=== PATIENT | female | born 1985 | race Caucasian/White ===

== ENCOUNTER 2020-04-18 00:53 | Emergency (ER) | payer OTHER ==
[~2020-04-18] VITALS: Ht 172.7 cm; Wt 55.3 kg
--- NOTE | 2020-04-18 00:53 | NUR ---
BIBEMS C/O R FLANK PAIN RADIAITING TO BACK X1 DAY. NOTED. PT HR-130'S. PT REPORTS BINGE DRINKING X1 WEEK. PT AAOX4, PT TO BED 1, -SOB/CP. VSS. PENDING ER PROVIDER DALIA
[2020-04-18 01:15] LABS: APPEARANCE,URINE CLOUDY (CLEAR); BILIRUBIN,URINE NEGATIVE (NEGATIVE); BLOOD, URINE TRACE-INTA Ery/uL (NEGATIVE); COLOR,URINE YELLOW (YELLOW); KETONES,URINE NEGATIVE (NEGATIVE); LEUKOCYTE ESTERASE ,URINE NEGATIVE (NEGATIVE); NITRITE, URINE NEGATIVE (NEGATIVE); PH,URINE 7.5 (5.0-8.0); PROTEIN,URINE NEGATIVE (NEGATIVE); UGLUCOSE 100 MG/DL mg/dL (NEGATIVE); UROBILINOGEN,URINE 0.2 EU/dL (0.2)
[2020-04-18] MEDS ORDERED: ONDANSETRON HCL/PF 4 MG/2 ML VIAL ONE (01:16)
[2020-04-18] MEDS ORDERED: LORAZEPAM INJ 2 MG/ML VIAL ONE ×2 (01:16→01:56)
[2020-04-18] MEDS: ONDANSETRON HCL/PF 4 MG/2 ML VIAL IVP ONE (01:29)
[2020-04-18] MEDS: LORAZEPAM INJ 2 MG/ML VIAL IV ONE ×2 (01:29→02:21)
[2020-04-18] MEDS: IV NS 0.9% 1,000 ML BAG IV ONE (01:30)
--- NOTE | 2020-04-18 01:50 | NUR ---
PT REQUESTING FOR ANOTHER DOSE OF ATIVAN +TACHY, +TREMORS. DR. CERON AWARE. NEW ORDER FOR ATIVAN
[2020-04-18 02:00] LABS: BASOPHILS % (AUTO) 0.4 % (0.0-2.0); EOSINOPHILS % (AUTO) 0.1 % (0.0-6.0); HEMATOCRIT 41 % (33-45); HEMOGLOBIN 13.7 g/dL (11.5-14.8); LYMPHOCYTES # (AUTO) 1.4 /CMM (0.8-4.8); LYMPHOCYTES % (AUTO) 16.7 % (20.0-44.0); MEAN CORPUSCULAR HGB CONC 34 g/dl (31.0-36.0); MEAN CORPUSCULAR VOLUME 100 fL (82-100); MONOCYTES # (AUTO) 0.8 /CMM (0.1-1.30); MONOCYTES % (AUTO) 9.1 % (2.0-12.0); NEUTROPHILS # (AUTO) 6.3 /CMM (1.8-8.9); NEUTROPHILS % (AUTO) 73.7 % (43.0-81.0); PLATELET COUNT (AUTO) 300 /CMM (150-450); WHITE BLOOD COUNT (AUTO) 8.5 K/uL (4.3-11.0)
[2020-04-18 02:06] LABS: CALCIUM, SERUM 8.4 mg/dL (8.5-10.1); CREATININE 0.7 mg/dL (0.6-1.3); POTASSIUM 3.2 mmol/L (3.5-5.1)
[2020-04-18 02:12] LABS: ALBUMIN 4.6 g/dL (3.4-5.0); BILIRUBIN,DIRECT 0.2 mg/dL (0.0-0.2); BILIRUBIN,TOTAL 0.6 mg/dL (0.2-1.0); TOTAL PROTEIN, SERUM 8.4 g/dL (6.4-8.2)
[2020-04-18] MEDS ORDERED: IOHEXOL-350 100 ML VIAL IV ONE (02:15)
[2020-04-18] MEDS ORDERED: IV NS 0.9% 250 ML IV ONE (02:15)
[2020-04-18] MEDS ORDERED: CT SWABBABLE VALVE TRANS SET 1 EA INFUS.SET MC ONE (02:15)
[2020-04-18 02:23] LABS: BACTERIA,URINE None seen /HPF (None Seen); RBC,URINE 0-2 /HPF (0-2); SQUAMOUS EPITHELIAL CELL,UR Few /HPF (None Seen); WBC,URINE 0-2 /HPF (0-3)
--- NOTE | 2020-04-18 03:00 | NUR ---
PT ON OBS; PT WAS GIVEN ATIVAN 2MG 2X. PT ASLEEP AT THIS TIME, VSS, NAD NOTED.
--- NOTE | 2020-04-18 05:56 | NUR ---
PT AMBULATED TO BATHROOM WITH MIN ASSIST. DR. CERON HAS D/C PAPERS IN CHART. PT MAY GO HOME IF SHE HAS RIDE HOME.
--- NOTE | 2020-04-18 06:05 | NUR ---
Patient discharged to home in stable condition. Written and verbal after care instructions given. Patient verbalizes understanding of instruction. IV removed. Catheter intact and site benign. Pressure and 4x4 applied to site. No bleeding noted.
[2020-04-18 06:49] VITALS: BP 130/85
== END 2020-04-18 06:50 | disposition home or self-care (01) ==
LOC: ER 00:53
DX: F10.139 Alcohol abuse with withdrawal, unspecified (principal); Y90.9 Presence of alcohol in blood, level not specified
CPT/HCPCS: 36415; 74177; 80048; 80076; 81001; 83690; 84703; 85025; 93005; 96361; 96374; 96375; 96376; 99285; J2060 ×2; J2405; J7030; J7050; Q9967; 81000-TC